=== PATIENT | male | born 1935 | race Caucasian/White ===

== ENCOUNTER 2020-07-27 16:49 | Emergency (ER) | payer OTHER ==
[~2020-07-27] VITALS: Ht 172.7 cm; Wt 74.8 kg
[2020-07-27 17:46] LABS: ABSOLUTE NEUTROPHILS 4.3 thou/uL (1.4-8.2); BASOPHILS 0.5 % (0.0-2.0); EOSINOPHILS 1.1 % (0.0-3.0); HEMATOCRIT 45.7 % (42.0-52.0); HEMOGLOBIN 15.4 gm/dL (14.0-18.0); LYMPHOCYTES 15.4 % (24.0-44.0); MCH 32.5 pg (26.0-34.0); MCHC 33.7 g/dL (28.0-37.0); MCV 96.5 fL (80.0-100.0); MONOCYTES 11.4 % (1.0-8.0); PLATELET COUNT 291 thou/uL (150-400); POLYS 71.6 % (36.0-66.0); RBC 4.74 mil/uL (4.50-6.00); RDW 12.9 % (10.5-14.5)
[2020-07-27 17:47] LABS: URINE BILIRUBIN NEGATIVE (Negative); URINE BLOOD NEGATIVE (Negative); URINE CLARITY CLEAR; URINE COLOR YELLOW; URINE GLUCOSE-RANDOM* NEGATIVE (Negative); URINE KETONES TRACE (Negative); URINE LEUKOCYTES-REFLEX NEGATIVE (Negative); URINE NITRITE-REFLEX NEGATIVE (Negative); URINE PROTEIN (DIPSTICK) NEGATIVE (Negative); URINE SPECIFIC GRAVITY 1.015 (1.005-1.035); URINE UROBILINOGEN 0.2 E.U./dl (0.2-1.0)
[2020-07-27] MEDS ORDERED: MORPHINE 30 MG PO (17:47)
[2020-07-27] MEDS ORDERED: MORPHINE 60 MG PO (17:47)
[2020-07-27] MEDS ORDERED: AMLODIPINE PO (17:48)
[2020-07-27] MEDS ORDERED: WARFARIN SODIUM5 MG PO (17:48)
[2020-07-27] MEDS ORDERED: HYDRALAZINE 5050 MG PO (17:49)
[2020-07-27] MEDS ORDERED: TESTOSTERONE INJ (17:50)
[2020-07-27] MEDS ORDERED: NIACINAMIDE (17:50)
[2020-07-27] MEDS ORDERED: LABETALOL PO (17:50)
[2020-07-27 18:12] LABS: CALCIUM 9.5 mg/dL (8.5-10.1); POTASSIUM 4.1 mmol/L (3.5-5.1)
[2020-07-27 18:19] LABS: INR 2.8; PROTIME 28.2 Seconds (9.3-11.4)
[2020-07-27 19:17] VITALS: BP 153/87
--- NOTE | 2020-07-28 07:15 | EKG ---
[address] [place] [address] ELECTROCARDIOGRAM REPORT Name: LAURA CABRERA Room #: [facility] Arlet#: [id number] Admission: 07/27/20 Attend Phys: Discharge: 07/27/20 Date of : 39 Report #: [id number] [facility] ED Test Date: 2020-07-27 Test Time: 17:04:08 Pat Name: LAURA CABRERA Department: Room: Gender: M Tomography Technologist: CARMEN : 1935 Requested By: Rito Crockett Order Number: [id number] MD: Franki Villalobos Measurements Intervals [place] Rate: 86 P: -12 NC: 190 QRS: -20 QRSD: 92 T: 24 QT: 354 QTc: 424 Interpretive Statements Sinus rhythm Borderline left axis deviation No previous ECG available for comparison Electronically Signed On 07-28-2020 7:15:17 VISITING NURSE by Franki Villalobos [email or web address] <ELECTRONICALLY SIGNED> By: Franki Villalobos MD, [facility] 07/28/20 0715 1704 1704 Franki Villalobos MD, FACC /EPI
== END 2020-07-27 19:39 | disposition home or self-care (01) ==
LOC: ER 16:49
PROVIDERS: Emergency Medicine
DX: S66.811A Strain of other specified muscles, fascia and tendons at wrist and hand level, right hand, initial encounter (principal); M25.511 Pain in right shoulder; I10 Essential (primary) hypertension; R51.9 Headache, unspecified; G50.0 Trigeminal neuralgia; Z86.718 Personal history of other venous thrombosis and embolism; Z79.899 Other long term (current) drug therapy; W18.30XA Fall on same level, unspecified, initial encounter; Y93.89 Activity, other specified; Y92.89 Other specified places as the place of occurrence of the external cause; Y99.9 Unspecified external cause status